=== PATIENT | female | born 1945 | race Caucasian/White ===

== ENCOUNTER 2018-09-30 09:10 | Emergency (ER) | payer MEDICARE, OTHER ==
[~2018-09-30 09:10] MED LIST: APIX5TAB PO; FURO-152 PO; METO25 PO
[2018-09-30] MEDS ORDERED: ONDANSETRON HCL 4 MG/2 ML VIAL ONE (10:43)
[2018-09-30] MEDS ORDERED: MORPHINE SULFATE 2 MG/ML 1ML SYG ONE (10:44)
[2018-09-30 11:04] LABS: BASOPHILS % (AUTO) 0.6 % (0.0-5.0); EOSINOPHILS % (AUTO) 2.4 % (0.0-8.0); HEMATOCRIT 37.7 % (36-48); LYMPHOCYTES % (AUTO) 16.2 % (21.0-51.0); MEAN CORPUSCULAR HEMOGLOBIN 29.9 pg (27.0-33.0); MEAN CORPUSCULAR HGB CONC 33.9 g/dL (32.0-36.0); MEAN CORPUSCULAR VOLUME 88.3 fL (79-99); MONOCYTES % (AUTO) 13.3 % (3.0-13.0); NEUTROPHILS % (AUTO) 67.5 % (40.0-77.0); NUCLEATED RED BLOOD CELLS 0.1 % (0.0-0.19); PLATELET COUNT (AUTO) 197 K/uL (130-400); RED BLOOD CELL COUNT(AUTO) 4.27 MIL/uL (4.00-5.50); RED CELL DISTRIBUTION WIDTH 13.5 % (11.0-15.5); WHITE BLOOD COUNT (AUTO) 10.2 K/uL (4.8-10.8)
[2018-09-30 11:09] LABS: POTASSIUM 4.6 mmol/L (3.5-5.1)
[2018-09-30 11:13] LABS: ALBUMIN 3.6 g/dL (3.5-5.0); BILIRUBIN,TOTAL 1.3 mg/dL (0.2-1.0); TOTAL PROTEIN, SERUM 7.8 g/dL (6.0-8.3)
[2018-09-30 11:31] LABS: INR 1.09 (0.85-1.15); PARTIAL THROMBOPLASTIN TIME 30.9 SEC (26.3-35.5); PROTHROMBIN TIME 11.4 SEC (9.6-11.6)
== END 2018-09-30 13:07 | disposition home or self-care (01) ==
LOC: EDH 09:10
DX: S76.011A Strain of muscle, fascia and tendon of right hip, initial encounter (principal); S63.591A Other specified sprain of right wrist, initial encounter; I10 Essential (primary) hypertension; I48.91 Unspecified atrial fibrillation; J44.9 Chronic obstructive pulmonary disease, unspecified; Z79.01 Long term (current) use of anticoagulants; W01.0XXA Fall on same level from slipping, tripping and stumbling without subsequent striking against object, initial encounter; Y93.89 Activity, other specified; Y92.89 Other specified places as the place of occurrence of the external cause; Y99.8 Other external cause status
CPT/HCPCS: 36415; 70450; 72125; 73110; 73552; 74176; 80053; 84484; 85025; 85610; 85730; 93005; 96374; 96375; 99285; J2405

== ENCOUNTER → 2022-02-25 | Outpatient (CLI) | payer MEDICARE | END | disposition home or self-care (01) | LOC: LAB 11:20 | PROVIDERS: ATTEND Internal Medicine Cardiovascular Disease | DX: I10 Essential (primary) hypertension (principal); I34.0 Nonrheumatic mitral (valve) insufficiency | CPT/HCPCS: 36415; 80048 ==

== ENCOUNTER 2025-05-16 11:41 | Emergency (ER) | payer MEDICARE ==
[~2025-05-16] VITALS: Ht 165.1 cm; Wt 77.6 kg
--- NOTE | 2025-05-16 11:47 | ERN ---
ED Note History of Present Illness Stated Complaint: HIGH BP Chief Complaint: Hypertension Time Seen by MD: 11:44 Dictation: PATIENT IS A 79-YEAR-OLD FEMALE BLOOD PRESSURE AND " COMING IN TODAY WITH COMPLAINTS OF HIGH BLOOD PRESSURE AND STATES IT FEELS LIKE SOMEBODY IS SITTING ON MY CHEST FOR THE LAST 3-4 WEEKS. SHE DENIES NAUSEA VOMITING NO SOB. 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 HE DENIES ANY HISTORY OF CAD/STENTS OR BYPASSES. SHE STATES SHE IS UNDER A LOT OF STRESS BECAUSE SHE JUST LOST HER HOME IN HIS NOW LIVING IN HER SON'S BACKYARD IN A VERY SMALL BUILDING. Allergies: Coded Allergies: No Known Drug Allergies (Unverified Allergy, Unknown, 12/19/16) Home Meds Active Scripts Magnesium Oxide/Mag Aa Chelate (Magnesium 300 mg Capsule) 300 Mg Capsule, 300 MG PO DAILY for 10 Days, #10 CAP 0 Refills Prov:JOANN AUGUSTNI MATERIALS ENGINEER 05/16/25 Metoprolol Tartrate (Metoprolol Tartrate) 25 Mg Tablet, 1 TAB PO BID for 30 Days, #60 TAB 0 Refills Prov:JOANN AUGUSTIN MATERIALS ENGINEER 05/16/25 Eszopiclone (Lunesta) 2 Mg Tablet, 2 MG PO HSPRN PRN for INSOMNIA, #15 TAB 0 Refills Prov:JOANN AUGUSTIN MATERIALS ENGINEER 05/16/25 Furosemide (Lasix) 20 Mg Tablet, 20 MG PO BID, #60 TAB Prov:LUIS LOVE MD 01/28/17 Metoprolol Tartrate (Lopressor) 25 Mg Tab, 50 MG PO BID, #60 TAB Prov:LUIS LOVE MD 01/28/17 Apixaban (Eliquis) 5 Mg Tablet, 5 MG PO BID, #60 TAB Prov:HERON BUSTAMANTE MD 12/20/16 Past Medical History History: Not Applicable RN Note Reviewed/Agreed w/PFSH: Yes Review of System Dictation CONSTITUTIONAL: NEGATIVE EXCEPT FOR HPI HEAD/FACE: NEGATIVE EXCEPT FOR HPI EENT: NEGATIVE EXCEPT FOR HPI RESPIRATORY: NEGATIVE EXCEPT FOR HPI CHEST PAIN/PRESSURE FOUR WEEKS GASTROINTESTINAL/ABDOMINAL: NEGATIVE EXCEPT FOR HPI GENITOURINARY: NEGATIVE EXCEPT FOR HPI MUSCULOSKELETAL: NEGATIVE EXCEPT FOR HPI INTEGUMENTARY: NEGATIVE EXCEPT FOR HPI NEUROLOGICAL/PSYCH: NEGATIVE EXCEPT FOR HPI HEMATOLOGIC/LYMPHATIC: NEGATIVE EXCEPT FOR HPI ALL SYSTEMS NEGATIVE, EXCEPT NOTED ABOVE. 13 POINT REVIEW OF SYSTEMS ASSESSED AND ALL NEGATIVE EXCEPT FOR ABOVE. Initial Vital Sign VS Vital Signs Date Time Temp Pulse Resp B/P (MAP) Pulse Ox O2 Delivery O2 Flow Rate FiO2 05/16/25 11:45 98.1 121 20 169/112 99 Room Air 05/16/25 14:17 0 21 Physical Exam Dictation VITAL SIGNS REVIEWED GENERAL APPEARANCE: ALERT, ORIENTED X 3, MODERATE ACUTE DISTRESS, WELL DEVELOPED, NOURISHED. HEAD AND FACE: NON-TRAUMATIC. EYES: PERRL, PINK CONJUNCTIVAS, EYELID NO TRAUMA, ANTERIOR CHAMBER WITH ARCUS SENILIS. EARS: PINNAS INTACT AND NO SIGNS OF TRAUMA OR ERYTHEMA EAR CANALS CLEAR AND NO DISCHARGE TM NO ERYTHEMA NOSE: NO DISCHARGE, NO BLEEDING. OROPHARYNX: MOUTH NORMAL, TONGUE PINK, PHARYNX CLEAR,NO ERYTHEMA, TONSILS NO EXUDATES, NO ABSCESSES NOTED, MUCOUS MEMBRANE MOIST NECK: SUPPLE, NON-TENDER, NO THYROMEGALY, NO MASSES, NO JVD, NO BRUITS BREAST:DEFERRED CHEST:NO TENDERNESS, NO CREPITUS, NO PARADOXICAL MOVEMENT, NO RETRACTIONS LUNGS:CLEAR, WELL-VENTILATED, SYMMETRIC, NO RALES, NO WHEEZING, NO RHONCHI, NO STRIDOR, GOOD BREATH SOUNDS BILATERALLY HEART: REGULAR RATE, REGULAR RHYTHM, NO MURMUR, NO GALLOPS VASCULAR: NO PERIPHERAL EDEMA, ABDOMEN: SOFT, POSITIVE BOWEL SOUNDS, NONDISTENDED, NO GUARDING, NONTENDER, NO REBOUND, NO MASSES NO HEPATOMEGALY, NO SPLENOMEGALY, NO NOONAN'S SIGN, NO HERNIAS. RECTAL: DEFERRED GENITAL: DEFERRED NEUROLOGICAL: NORMAL SPEECH, MOTOR FUNCTION INTACT, SENSORY FUNCTION INTACT ANXIOUS MUSCULOSKELETAL: NECK NONTENDER, FULL RANGE OF MOTION, BACK NONTENDER, FULL RANGE OF MOTION, EXTREMITIES: NONTENDER, FULL RANGE OF MOTION SKIN: COLOR PINK, DRY, NO TURGOR, NO RASH, NO LACERATIONS, NO ABRASIONS, NO CONTUSIONS. LYMPHATIC: DEFERRED Results (Laboratory/Radiology) Laboratory/Radiology Laboratory Tests Test 05/16/25 12:28 White Blood Count 7.7 K/uL (4.8-10.8) Red Blood Count 4.34 MIL/uL (4.00-5.50) Hemoglobin 12.7 g/dL (12.0-16.0) Hematocrit 39.4 % (36-48) Mean Corpuscular Volume 90.8 fL (79-99) Mean Corpuscular Hemoglobin 29.3 pg (27.0-33.0) Mean Corpuscular Hemoglobin Concent 32.2 g/dL (32.0-36.0) Red Cell Distribution Width 16.0 % (11.0-15.5) H Platelet Count 209 K/uL (130-400) Mean Platelet Volume 9.4 fL (7.5-10.5) Immature Granulocyte % (Auto) 0.1 % (0-1) Neutrophils (%) (Auto) 63.0 % (40.0-77.0) Lymphocytes (%) (Auto) 25.2 % (21.0-51.0) Monocytes (%) (Auto) 10.1 % (3.0-13.0) Eosinophils (%) (Auto) 0.7 % (0.0-8.0) Basophils (%) (Auto) 0.9 % (0.0-5.0) Neutrophils # (Auto) 4.8 K/uL (1.8-7.7) Lymphocytes # (Auto) 1.9 K/uL (1.0-4.8) Monocytes # (Auto) 0.8 K/uL (0.1-1.0) Eosinophils # (Auto) 0.05 K/uL (0.00-0.70) Basophils # (Auto) 0.07 K/uL (0.00-0.20) Absolute Immature Granulocyte (auto 0.01 K/uL (0-1) Nucleated Red Blood Cells 0.0 % (0.0-0.19) Sodium Level 145 mmol/L (136-145) Potassium Level 3.6 mmol/L (3.5-5.1) Chloride Level 106 mmol/L (101-111) Carbon Dioxide Level 28 mmol/L (21-32) Blood Urea Nitrogen 11 mg/dL (7-18) Creatinine 0.9 mg/dL (0.5-1.0) Glomerular Filtration Rate Calc 66 mL/min (>90) Random Glucose 108 mg/dL (70-105) H Total Calcium 9.1 mg/dL (8.5-10.1) Magnesium Level 1.70 mg/dL (1.80-2.40) L Troponin I High Sensitivity 14 ng/L (4-50) 1240/CHEST X-RAY NEGATIVE Labs Reviewed?: Yes EKG Comment: 1225/EKG ATRIAL FIBRILLATION WITH A RVR/VENTRICULAR RATE 110/NO SIGNIFICANT CHANGE PATIENT STATES SHE IS ON METOPROLOL AND ELIQUIS FOR KNOWN ATRIAL FIBRILLATION ED Course ED Course Orders Procedure Category Date Status Time Cbc With Differential LAB 05/16/25 Complete 11:44 Chest 1vw RAD 05/16/25 Resulted 11:44 12 Lead Ekg Tracing- EKG 05/16/25 Complete Technical 11:44 Nitroglycerin 0.4mg PHA 05/16/25 Complete Sl Tab (Nitrostat) 12:00 Magnesium LAB 05/16/25 Complete 11:44 Troponin I High LAB 05/16/25 Complete Sensitivity 11:44 Aspirin 325mg Tab PHA 05/16/25 Complete (Aspirin 325mg Tab) 12:00 Basic Metabolic Panel LAB 05/16/25 Complete 11:44 Metoprolol Succinate PHA 05/16/25 Complete (Toprol Xl) 12:30 Magnesium Oxide PHA 05/16/25 Complete (Mag-Ox) 14:00 Clonidine Hcl 0.2 Mg PHA 05/16/25 Transmitted Tablet (Catapres 0. 15:00 Current Medications Medications (Trade) Dose Ordered Sig/Michael Route PRN Reason Start Time Stop Time Status Last Admin Dose Admin Aspirin (Aspirin 325mg Tab) 325 mg ONCE ONCE PO 05/16/25 12:00 05/16/25 12:01 DC 05/16/25 14:24 Magnesium Oxide (Mag-Ox) 400 mg ONCE ONCE PO 05/16/25 14:00 05/16/25 14:01 DC 05/16/25 14:24 Metoprolol Succinate (TopROL XL) 25 mg ONCE ONCE PO 05/16/25 12:30 05/16/25 12:31 DC 05/16/25 14:24 Morphine Sulfate (morPHINE 4MG SYG) 2 mg ONCE ONCE IVP 05/16/25 12:00 05/16/25 13:07 DC Nitroglycerin (Nitrostat) 0.4 mg Q5M PRN SL CHEST PAIN 05/16/25 12:00 05/16/25 13:07 DC Ondansetron HCl (zoFRAN 4MG INJ) 4 mg ONCE ONCE IVP 05/16/25 12:00 05/16/25 13:07 DC Vital Signs Date Time Temp Pulse Resp B/P (MAP) Pulse Ox O2 Delivery O2 Flow Rate FiO2 05/16/25 14:30 98.1 111 18 188/123 99 Room Air* 0 21 05/16/25 14:17 98.1 110 18 195/128 97 Room Air* 0 21 05/16/25 11:45 98.1 121 20 169/112 99 Room Air 1415/PATIENT STATES SHE HAS NO CHEST PAIN AT THIS TIME. HEART RATE IS CONTROLLED AFTER RECEIVING METOPROLOL 25. PATIENT STATES SHE IS HAVING TROUBLE SLEEPING AND FINDS HERSELF RUMINATING ABOUT HER WHO IS RECENTLY. NO SI OR HI. SHE WILL HAVE HER METOPROLOL INCREASED TO 25 MG B.I.D. AND WE WILL BE PRESCRIBED HIP NOT ASLEEP AGENT FOR THE NEXT COUPLE OF WEEKS TO HELP WITH THE INSOMNIA AND MAINTENANCE OF [id number]/ 1432/patient blood pressure 180-123 we will be given clonidine 0.2 p.o.. Spoke to patient about admission, she states I do not want to stay in the hospital at got two small dogs out got a go home to and I have nobody take care them. HEART Score Response (Comments) Value EKG: Repolarization changes 1 Age: > 65yrs (+2) 2 Risk Factors: 1-2 risk factors (+1) 1 Initial Troponin: Normal limit (0) 0 Total 4 Medical Decision Making MDM MDM: DIFFERENTIAL DIAGNOSIS: ACS/AMI/ELECTROLYTE IMBALANCE/DEHYDRATION/ARR HYTHMIAS/PNEUMONIA/BRONCHITIS/ANXIETY RATIONALE: TESTS CONSIDERED AND ORDERED SECONDARY TO SHARED DECISION MAKING INCLUDE: LABS/EKG/RADIOLOGY PREVIOUS OUTSIDE RECORDS REVIEWED: OLD ER VISITS. RISK OF COMPLICATION AND/OR MORBIDITY OR MORTALITY OF PATIENT MANAGEMENT: NONE MEDICATIONS-PER MEDICATION RECONCILIATION NEED FOR HOSPITALIZATION: PATIENT DOES NOT MEET CRITERIA FOR HOSPITALIZATION. NONE NEED FOR EMERGENCY MAJOR/MINOR SURGERY: NO THERE ARE NO SOCIAL CONCERNS WITH THIS PATIENT. PRESCRIPTION DRUG MANAGEMENT MAGNESIUM//LUNESTA METOPROLOL 25 B.I.D. PRESCRIPTIONS WILL INCLUDE SYMPTOMATIC CARE PATIENT'S PRIOR EXTERNAL MEDICAL RECORDS FROM OTHER ER VISITS WERE REVIEWED BY ME INDICATED. PRIOR TESTING AND RESULTS FROM PREVIOUS VISITS WERE REVIEWED. PRIOR TESTS WERE TAKEN INTO ACCOUNT WITH MEDICAL DECISION MAKING AND RESOURCE UTILIZATION, INDEPENDENT HISTORIAN/HISTORIANS WERE USED TO OBTAIN COMPLETE MEDICAL HISTORY. I INDEPENDENTLY INTERPRETED THE TEST THAT WERE PERFORMED, RESULTS WERE REVIEWED BY ME AND CONSIDERED FINDINGS ON RADIOLOGY IF ORDERED. MEDICAL MANAGEMENT AND EXAMINATION INTERPRETATION DISCUSSIONS WERE HAD BY ME WIT H OTHER QUALIFIED HEALTHCARE PROFESSIONALS INDICATED FOR THE PATIENT'S CARE. DX & DISP Disposition: Discharge Departure Impression: Primary Impression: Heart palpitations Additional Impressions: Atrial fibrillation with rapid ventricular response, Hypomagnesemia, Insomnia, Situational anxiety, Accelerated hypertension Condition: Stable Scripts Clonidine HCl (Clonidine HCl) 0.1 Mg Tablet 0.1 MG PO AD for blood pressure more than 160, #30 TAB Prov: JOANN AUGUSTINP 05/16/25 Magnesium Oxide/Mag Aa Chelate (Magnesium 300 mg Capsule) 300 Mg Capsule 300 MG PO DAILY for 10 Days, #10 CAP 0 Refills Prov: JOANN AUGUSTINP 05/16/25 Metoprolol Tartrate (Metoprolol Tartrate) 25 Mg Tablet 1 TAB PO BID for 30 Days, #60 TAB 0 Refills Prov: JOANN AUGUSTINP 05/16/25 Eszopiclone (Lunesta) 2 Mg Tablet 2 MG PO HSPRN PRN for INSOMNIA, #15 TAB 0 Refills Prov: JOANN AUGUSTINP 05/16/25 Additional Instructions: Follow-up with primary care provider in 1 to 2 days. Take medications as directed here in the emergency room. Okay to continue home medications unless otherwise discussed during your visit in the emergency room today. Return to your nearest emergency room if symptoms worsen or if there is no improvement. Call 911 if you need immediate assistance. Take Tylenol or Motrin [id number] as needed and if no contraindications are present. Increase oral hydration. A wound culture or urine culture was ordered here in the emergency room department please follow-up with primary care provider and advise them to get repeat ports from our facility. If you had any Saulo wrap/splints that were applied here, please do not remove them until you see your primary care or specialty. Increase your metoprolol to 25 mg twice a day. Continue Eliquis. Take Lunesta as directed for sleep if needed See your primary care doctor for follow up Take magnesium as directed until gone Referrals: SELF,REFERRAL (PCP) Time of Disposition: 14:17 I have reviewed the case, and I agree with, Diagnosis and Plan JOANN AUGUSTIN May 16, 2025 11:47
[2025-05-16] MEDS ORDERED: NITROGLYCERIN 0.4 MG SL TAB SL PRN (12:00)
--- NOTE | 2025-05-16 12:11 | EKG ---
[facility] Test Date: 2025-05-16 Test Time: 12:06:00 Pat Name: SPEEDY ADAMS Department: [facility] Room: Gender: F Machine Clothing Worker: [id number] Requested By: JOANN AUGUSTIN Order Number: [id number] Reading MD: Simone Valdes Measurements Intervals [place] Rate: 110 P: 0 DE: 0 QRS: 65 QRSD: 85 T: -30 QT: 362 QTc: 490 Interpretive Statements Atrial fibrillation Low voltage, precordial leads Minimal ST depression, diffuse leads Compared to ECG 09/30/2018 09:57:18 Low QRS voltage now present ST (T wave) deviation still present Electronically Signed On 05-16-2025 21:12:53 INTERLOCKING AND SIGNAL MECHANIC by Simone Valdes Please click the below link to view image of tracing.
[2025-05-16 12:42] LABS: IMMATURE GRANULOCYTE ABSOLUTE 0.01 K/uL (0-1); NUCLEATED RED BLOOD CELLS 0.0 % (0.0-0.19); PLATELET COUNT (AUTO) 209 K/uL (130-400); RED BLOOD CELL COUNT(AUTO) 4.34 MIL/uL (4.00-5.50); RED CELL DISTRIBUTION WIDTH 16.0 % (11.0-15.5); WHITE BLOOD COUNT (AUTO) 7.7 K/uL (4.8-10.8)
[2025-05-16 12:51] LABS: CREATININE 0.9 mg/dL (0.5-1.0); GLOMERULAR FILTR. RATE CALC 66.0 mL/min (>90); GLUCOSE,RANDOM 108.0 mg/dL (70-105); SODIUM SERUM 145.0 mmol/L (136-145); UREA NITROGEN, BLOOD 11.0 mg/dL (7-18)
--- NOTE | 2025-05-16 13:14 | HMCIMG ---
STUDY CR CHEST, 1 VIEW CLINICAL HISTORY Chest pain and pressure COMPARISON Chest radiograph 24 January 2017 FINDINGS LUNGS No focal consolidation or pulmonary mass. No overt pulmonary edema. PLEURAL SPACES Blunting of the right costophrenic angle with meniscus type lateral basal opacity consistent with a moderate right pleural effusion. Trace blunting of the left costophrenic angle in keeping with a small left pleural effusion. A curvilinear opacity along the right minor fissure is compatible with a small fissural loculated effusion. No pneumothorax. MEDIASTINUM AND HERNAN Cardiac size and mediastinal contours are within normal limits. Pulmonary vascularity is not overtly congested. BONES AND SOFT TISSUES No acute displaced rib fracture or destructive osseous lesion. Visualized soft tissues are unremarkable. IMPRESSION * Moderate right and small left pleural effusions with additional small fissural effusion along the right minor fissure. * No focal consolidation or pneumothorax identified. /[place]
[2025-05-16] MEDS ORDERED: ESZO2TAB56 PO (14:19)
[2025-05-16] MEDS ORDERED: METO25TA6 PO (14:19)
[2025-05-16] MEDS ORDERED: MAGN300C PO (14:19)
[2025-05-16] MEDS: ASPIRIN 325MG TAB PO ONE (14:24)
[2025-05-16] MEDS: MAGNESIUM OXIDE 400 MG TABLET PO ONE (14:24)
--- NOTE | 2025-05-16 14:24 | NUR ---
PT BROUGHT TO ROOM 5 AT 1400 BY TRIAGE NURSE.
[2025-05-16] MEDS ORDERED: CLON0.1T PO (14:36)
[2025-05-16 16:07] VITALS: BP 156/88; PULSE 106; RESP 17; TEMP 98.3; O2SAT 97
== END 2025-05-16 16:06 | disposition home or self-care (01) ==
LOC: EDH 11:41
DX: R00.2 Palpitations (principal); I48.20 Chronic atrial fibrillation, unspecified; I10 Essential (primary) hypertension; E83.42 Hypomagnesemia; G47.00 Insomnia, unspecified; F41.9 Anxiety disorder, unspecified; I48.91 Unspecified atrial fibrillation; Z79.01 Long term (current) use of anticoagulants; Z79.899 Other long term (current) drug therapy
CPT/HCPCS: 36415; 71045; 80048; 83735; 84484; 85025; 93005; 99285